=== PATIENT | male | born 1975 | race Caucasian/White ===

== ENCOUNTER → 2017-05-04 | Outpatient (CLI) | payer MEDICAID | LOC: M LAB 12:32 | DX: F31.4 Bipolar disorder, current episode depressed, severe, without psychotic features (principal) | CPT/HCPCS: 80178 ==

== ENCOUNTER → 2017-05-12 | Outpatient (CLI) | payer MEDICAID ==
[2017-05-12 10:34] LABS: BASO % 0.4 % (0.0-1.0); EOS # 0.2 10^3/uL (0.0-0.50); EOS % 2.9 % (0.0-3.0); HEMATOCRIT 40.5 % (42.0-52.0); HEMOGLOBIN 14.3 g/dl (14.0-18.0); IMMATURE GRANULOCYTE % 0.4 % (0-3.0); LYMPH # 1.4 10^3/uL (1.5-4.5); LYMPH % 20.6 % (24.0-44.0); MEAN CORPUSCULAR HEMOGLOBIN 33.3 pg (27.0-33.0); MEAN CORPUSCULAR HGB CONC 35.3 g/dl (32.0-36.5); MEAN CORPUSCULAR VOLUME 94.4 fl (80.0-96.0); MONO # 0.8 10^3/uL (0.0-0.8); MONO % 11.9 % (0.0-5.0); NEUTROPHILS # 4.3 10^3/uL (1.8-7.7); NEUTROPHILS % 63.8 % (36.0-66.0); PLATELET COUNT, AUTOMATED 284 10^3/uL (150-450); RED BLOOD COUNT 4.29 10^6/uL (4.30-6.10); RED CELL DISTRIBUTION WIDTH 12.5 % (11.5-14.5); WHITE BLOOD COUNT 6.8 10^3/uL (4.0-10.0)
[2017-05-12 10:37] LABS: APPEARANCE, URINE CLEAR (CLEAR); BACTERIA, URINE AUTO NEGATIVE (NEGATIVE); BILIRUBIN, URINE AUTO NEGATIVE (NEGATIVE); BLOOD, URINE BLOOD NEGATIVE (NEGATIVE); COLOR, URINE YELLOW (YELLOW); GLUCOSE, URINE (UA) AUTO NEGATIVE (NEGATIVE); KETONE, URINE AUTO NEGATIVE (NEGATIVE); LEUKOCYTE ESTERASE, URINE AUTO NEGATIVE (NEGATIVE); MUCUS, URINE SMALL (NEGATIVE); NITRITE, URINE AUTO NEGATIVE (NEGATIVE); PROTEIN, URINE AUTO NEGATIVE (NEGATIVE); RBC, URINE AUTO 1 /HPF (0-3); SPECIFIC GRAVITY URINE AUTO 1.014 (1.002-1.035); SQUAMOUS EPITHELIAL CELL UR AU 0 /HPF (0-6); UROBILINOGEN, URINE AUTO 0.2 mg/dL (0.0-2.0); WBC, URINE AUTO 1 /HPF (0-3)
[2017-05-12 10:58] LABS: ALBUMIN/GLOBULIN RATIO 1.33 (1.00-1.93); ALKALINE PHOSPHATASE 62 U/L (45-117); ALT/SGPT 38 U/L (12-78); ANION GAP 7 MEQ/L (8-16); AST/SGOT 28 U/L (7-37); BILIRUBIN,TOTAL 0.8 MG/DL (0.2-1.0); BLOOD UREA NITROGEN 15 MG/DL (7-18); CALCIUM LEVEL 9.2 MG/DL (8.5-10.1); CARBON DIOXIDE LEVEL 29 MEQ/L (21-32); CHLORIDE LEVEL 105 MEQ/L (98-107); GLOMERULAR FILTRATION RATE > 60.0 (>60); GLUCOSE, FASTING 78 MG/DL (70-100); POTASSIUM SERUM 4.5 MEQ/L (3.5-5.1); SODIUM LEVEL 141 MEQ/L (136-145)
[2017-05-13 08:08] LABS: HEPATITIS A IgG TOTAL Positive (Negative)
[2017-05-13 11:27] LABS: HEPATITIS B SURFACE ANTIGEN NEGATIVE (NEGATIVE)
[2017-05-13 11:31] LABS: HEPATITIS B SURFACE ANTIBODY NEGATIVE (POSITIVE)
== END ==
LOC: M LAB 09:50
DX: F14.90 Cocaine use, unspecified, uncomplicated (principal); F10.21 Alcohol dependence, in remission; F31.9 Bipolar disorder, unspecified; F43.10 Post-traumatic stress disorder, unspecified
CPT/HCPCS: 80053

== ENCOUNTER → 2017-05-25 | Outpatient (CLI) | payer OTHER, MEDICAID ==
[2017-05-25 14:27] LABS: ALBUMIN 4.1 GM/DL (3.2-5.2); ALBUMIN/GLOBULIN RATIO 1.37 (1.00-1.93); ALKALINE PHOSPHATASE 58 U/L (45-117); ALT/SGPT 30 U/L (12-78); AST/SGOT 16 U/L (7-37); BILIRUBIN,DIRECT 0.2 MG/DL (0.0-0.2); TOTAL PROTEIN 7.1 GM/DL (6.4-8.2)
== END ==
LOC: M LAB 12:35
DX: F11.20 Opioid dependence, uncomplicated (principal)
CPT/HCPCS: 80076

== ENCOUNTER → 2017-09-05 | Outpatient (CLI) | payer OTHER ==
[2017-09-05 12:51] LABS: ALBUMIN/GLOBULIN RATIO 1.38 (1.00-1.93); ALKALINE PHOSPHATASE 64 U/L (45-117); ALT/SGPT 22 U/L (12-78); AST/SGOT 15 U/L (7-37); BILIRUBIN,DIRECT 0.2 MG/DL (0.0-0.2); BILIRUBIN,TOTAL 1.2 MG/DL (0.2-1.0); TOTAL PROTEIN 6.9 GM/DL (6.4-8.2)
[2017-09-05 12:52] LABS: LITHIUM LEVEL 0.41 MEQ/L (0.60-1.20)
== END ==
LOC: M LAB 10:38
DX: Z51.81 Encounter for therapeutic drug level monitoring (principal); Z79.899 Other long term (current) drug therapy
CPT/HCPCS: 80178

== ENCOUNTER → 2017-09-28 | Outpatient (CLI) | payer OTHER ==
[2017-09-28 10:09] LABS: LITHIUM LEVEL 0.46 MEQ/L (0.60-1.20)
== END ==
LOC: M LAB 09:02
DX: F31.4 Bipolar disorder, current episode depressed, severe, without psychotic features (principal)
CPT/HCPCS: 80178

== ENCOUNTER → 2017-10-10 | Outpatient (CLI) | payer OTHER ==
[2017-10-10 09:37] LABS: HEMATOCRIT 39.8 % (42.0-52.0); HEMOGLOBIN 13.9 g/dl (13.5-17.5); MEAN CORPUSCULAR HEMOGLOBIN 32.7 pg (27.0-33.0); MEAN CORPUSCULAR HGB CONC 34.9 g/dl (32.0-36.5); MEAN CORPUSCULAR VOLUME 93.6 fl (80.0-96.0); PLATELET COUNT, AUTOMATED 264 10^3/uL (150-450); RED BLOOD COUNT 4.25 10^6/uL (4.30-6.10); RED CELL DISTRIBUTION WIDTH 12.7 % (11.5-14.5); WHITE BLOOD COUNT 5.7 10^3/uL (4.0-10.0)
[2017-10-10 10:37] LABS: ALBUMIN 3.6 GM/DL (3.2-5.2); ALBUMIN/GLOBULIN RATIO 1.29 (1.00-1.93); ALKALINE PHOSPHATASE 72 U/L (45-117); ALT/SGPT 23 U/L (12-78); ANION GAP 5 MEQ/L (8-16); AST/SGOT 15 U/L (7-37); BILIRUBIN,TOTAL 0.5 MG/DL (0.2-1.0); BLOOD UREA NITROGEN 18 MG/DL (7-18); CALCIUM LEVEL 8.6 MG/DL (8.5-10.1); CARBON DIOXIDE LEVEL 29 MEQ/L (21-32); CHLORIDE LEVEL 109 MEQ/L (98-107); CREATININE FOR GFR 0.97 MG/DL (0.70-1.30); FREE THYROXINE INDEX 2.9 % (1.4-3.8); GLOMERULAR FILTRATION RATE > 60.0 (>60); GLUCOSE, FASTING 83 MG/DL (70-100); SODIUM LEVEL 143 MEQ/L (136-145); T UPTAKE 35 % (33-40); THYROXINE (T4) 8.3 UG/DL (4.5-12.0); TOTAL PROTEIN 6.4 GM/DL (6.4-8.2)
== END ==
LOC: M LAB 09:17
DX: F31.4 Bipolar disorder, current episode depressed, severe, without psychotic features (principal)
CPT/HCPCS: 84443

== ENCOUNTER 2018-01-28 21:27 | Emergency (ER) | payer OTHER ==
[2018-01-28] MEDS: DOXYCYCLINE HYCLATE 100 MG TAB PO (22:45)
== END 2018-01-28 23:09 | disposition home or self-care (01) ==
LOC: M ED 21:27
DX: L02.415 Cutaneous abscess of right lower limb (principal); F31.9 Bipolar disorder, unspecified; F19.11 Other psychoactive substance abuse, in remission; Z79.899 Other long term (current) drug therapy
CPT/HCPCS: 99283

== ENCOUNTER 2018-06-26 10:16 | Emergency (ER) | payer OTHER ==
[~2018-06-26] VITALS: Ht 162.6 cm; Wt 71.3 kg
[~2018-06-26 10:16] MED LIST: DOXY100C37 PO; FOLI800C PO; IBUP80TA PO; LITH300T2 PO; MULTCAP PO; PRAZ1CAP PO
[2018-06-26 10:17] VITALS: BP 133/58
[2018-06-26] MEDS ORDERED: VIVI380I (10:25)
[2018-06-26] MEDS ORDERED: NAPR500T6 PO (11:03)
== END 2018-06-26 11:13 | disposition home or self-care (01) ==
LOC: M ED 10:16
DX: M77.01 Medial epicondylitis, right elbow (principal); Z90.49 Acquired absence of other specified parts of digestive tract; Z79.891 Long term (current) use of opiate analgesic

== ENCOUNTER → 2018-06-30 | Outpatient (REF) | payer OTHER ==
[~2018-06-30] MED LIST changes: +NAPR500T6 PO; +VIVI380I
== END ==
LOC: M SFHCPLAZ 08:47
PROVIDERS: ATTEND Family Medicine
DX: G56.01 Carpal tunnel syndrome, right upper limb (principal)

== ENCOUNTER → 2018-08-07 | Outpatient (REF) | payer OTHER ==
[2018-08-07 16:28] LABS: BLOOD UREA NITROGEN 16 MG/DL (7-18); CALCIUM LEVEL 8.5 MG/DL (8.5-10.1); CARBON DIOXIDE LEVEL 28 MEQ/L (21-32); CHLORIDE LEVEL 106 MEQ/L (98-107); CREATININE FOR GFR 0.91 MG/DL (0.70-1.30); GLOMERULAR FILTRATION RATE > 60.0 (>60); GLUCOSE, FASTING 88 MG/DL (70-100); POTASSIUM SERUM 4.3 MEQ/L (3.5-5.1); SODIUM LEVEL 140 MEQ/L (136-145)
== END ==
LOC: M SFHCPLAZ 14:08
PROVIDERS: ATTEND Family Medicine
DX: G56.01 Carpal tunnel syndrome, right upper limb (principal)

== ENCOUNTER 2018-08-18 10:37 | Outpatient (RCR) | payer OTHER | END 2018-08-27 | LOC: M OT 10:37 | PROVIDERS: ATTEND Student in an Organized Health Care Education/Training Program | DX: G56.01 Carpal tunnel syndrome, right upper limb (principal) ==

== ENCOUNTER → 2018-09-27 | Outpatient (RCR) | payer OTHER | LOC: M OT 08-28 10:02 | PROVIDERS: ATTEND Student in an Organized Health Care Education/Training Program | DX: Z51.89 Encounter for other specified aftercare (principal); G56.01 Carpal tunnel syndrome, right upper limb ==

== ENCOUNTER → 2018-09-27 | Outpatient (REF) | payer OTHER ==
[2018-09-27 19:52] LABS: BASO % 0.4 % (0.0-1.0); EOS # 0.1 10^3/uL (0.0-0.50); EOS % 2.3 % (0.0-3.0); HEMATOCRIT 41.7 % (42.0-52.0); HEMOGLOBIN 14.7 g/dl (13.5-17.5); LYMPH # 1.7 10^3/uL (1.5-4.5); LYMPH % 29.9 % (24.0-44.0); MEAN CORPUSCULAR HEMOGLOBIN 32.7 pg (27.0-33.0); MEAN CORPUSCULAR HGB CONC 35.3 g/dl (32.0-36.5); MEAN CORPUSCULAR VOLUME 92.9 fl (80.0-96.0); MONO # 0.8 10^3/uL (0.0-0.8); MONO % 14.5 % (0.0-5.0); NEUTROPHILS # 2.9 10^3/uL (1.8-7.7); NEUTROPHILS % 52.5 % (36.0-66.0); PLATELET COUNT, AUTOMATED 292 10^3/uL (150-450); RED BLOOD COUNT 4.49 10^6/uL (4.30-6.10); WHITE BLOOD COUNT 5.6 10^3/uL (4.0-10.0)
[2018-09-27 20:01] LABS: ALBUMIN 4.1 GM/DL (3.2-5.2); ALT/SGPT 37 U/L (12-78); BILIRUBIN,TOTAL 0.9 MG/DL (0.2-1.0); BLOOD UREA NITROGEN 16 MG/DL (7-18); CALCIUM LEVEL 9.2 MG/DL (8.5-10.1); CARBON DIOXIDE LEVEL 25 MEQ/L (21-32); CHLORIDE LEVEL 108 MEQ/L (98-107); CHOLESTEROL LEVEL 155 MG/DL (<200); CHOLESTEROL RISK RATIO 3.229 (<5); CREATININE FOR GFR 0.98 MG/DL (0.70-1.30); FREE T4 1.18 NG/DL (0.76-1.46); GLOMERULAR FILTRATION RATE > 60.0 (>60); GLUCOSE, FASTING 82 MG/DL (70-100); HDL CHOLESTEROL 48 MG/DL (>40); LDL CHOLESTEROL 85 MG/DL (<100); NON-HDL-C 107 MG/DL; SODIUM LEVEL 142 MEQ/L (136-145); THYROID STIMULATING HORMONE 0.965 uIU/ML (0.358-3.740); TOTAL PROTEIN 7.2 GM/DL (6.4-8.2); TRIGLYCERIDES LEVEL 111 MG/DL (<150)
[2018-09-27 20:20] LABS: HEMOGLOBIN A1c 5.4 %
== END ==
LOC: M LAB REF 19:18
PROVIDERS: ATTEND Nurse Practitioner Family
DX: Z13.9 Encounter for screening, unspecified (principal)

== ENCOUNTER 2018-10-11 08:15 | Outpatient (RCR) | payer OTHER | END 2018-10-28 | LOC: M OT 08:15 | PROVIDERS: ATTEND Student in an Organized Health Care Education/Training Program | DX: G56.01 Carpal tunnel syndrome, right upper limb (principal) ==

== ENCOUNTER 2018-12-15 09:07 | Emergency (ER) | payer OTHER ==
[~2018-12-15] VITALS: Ht 165.1 cm; Wt 70.6 kg
[2018-12-15 09:08] VITALS: BP 139/73
[2018-12-15] MEDS ORDERED: VITA100T59 PO (09:25)
[2018-12-15] MEDS ORDERED: AMOX500C PO (09:47)
== END 2018-12-15 09:57 | disposition home or self-care (01) ==
LOC: M ED 09:07
DX: J06.9 Acute upper respiratory infection, unspecified (principal); Z79.899 Other long term (current) drug therapy

== ENCOUNTER → 2019-06-20 | Outpatient (CLI) | payer SELFPAY ==
[~2019-06-20] MED LIST changes: +AMOX500C PO; +VITA100T59 PO
--- NOTE | 2019-06-20 17:21 | REP ---
REASON: Pain after trauma. FINDINGS: No acute fracture or destructive osseous lesion. Electronically Signed by Jay Webber DO 06/21/2019 10:49 A
== END ==
LOC: M RAD 15:53
PROVIDERS: ATTEND Physician Assistant Medical
DX: S69.91XA Unspecified injury of right wrist, hand and finger(s), initial encounter (principal); X58.XXXA Exposure to other specified factors, initial encounter; Y92.9 Unspecified place or not applicable

== ENCOUNTER 2019-08-14 15:19 | Emergency (ER) | payer SELFPAY ==
[~2019-08-14] VITALS: Ht 165.1 cm; Wt 69.8 kg
[2019-08-14 15:19] VITALS: BP 139/77
[2019-08-14] MEDS ORDERED: AUGMENTIN 875 MG TAB PO ONE (15:45)
[2019-08-14] MEDS ORDERED: BOOSTRIX/ADACEL VACCINE (DIPHTH/PERTUSS/ACELL/TETANUS) 0.5ML SYR IM ONE (15:45)
[2019-08-14] MEDS ORDERED: AUGM875T28 PO (16:07)
== END 2019-08-14 16:16 | disposition home or self-care (01) ==
LOC: M ED 15:19
DX: S51.851A Open bite of right forearm, initial encounter (principal); W54.0XXA Bitten by dog, initial encounter; Y92.9 Unspecified place or not applicable; Y93.K1 Activity, walking an animal; Y99.9 Unspecified external cause status; F17.220 Nicotine dependence, chewing tobacco, uncomplicated

== ENCOUNTER 2019-10-08 01:15 | Emergency (ER) | payer MEDICAID, SELFPAY ==
[~2019-10-08 01:15] MED LIST changes: +AUGM875T28 PO
== END 2019-10-09 02:30 | disposition home or self-care (01) ==
LOC: M ED 01:15
DX: K40.90 Unilateral inguinal hernia, without obstruction or gangrene, not specified as recurrent (principal)

== ENCOUNTER 2019-10-20 18:05 | Emergency (ER) | payer MEDICAID, SELFPAY ==
[~2019-10-20] VITALS: Ht 165.1 cm; Wt 70.9 kg
[2019-10-20 19:01] LABS: BASO # 0.1 10^3/uL (0.0-0.2); BASO % 0.8 % (0.0-1.0); EOS # 0.3 10^3/uL (0.0-0.5); EOS % 4.2 % (0.0-3.0); HEMATOCRIT 38.9 % (42.0-52.0); HEMOGLOBIN 14.1 g/dl (13.5-17.5); LYMPH # 1.9 10^3/uL (1.5-5.0); LYMPH % 31.8 % (24.0-44.0); MEAN CORPUSCULAR HGB CONC 36.2 g/dl (32.0-36.5); MEAN CORPUSCULAR VOLUME 91.1 fl (80.0-96.0); MONO # 0.7 10^3/uL (0.0-0.8); MONO % 12.5 % (0.0-5.0); NEUTROPHILS % 50.5 % (36.0-66.0); PLATELET COUNT, AUTOMATED 295 10^3/uL (150-450); RED BLOOD COUNT 4.27 10^6/uL (4.30-6.10); WHITE BLOOD COUNT 5.9 10^3/uL (4.0-10.0)
[2019-10-20 19:33] LABS: BLOOD UREA NITROGEN 18 MG/DL (7-18); CARBON DIOXIDE LEVEL 26 MEQ/L (21-32); CHLORIDE LEVEL 108 MEQ/L (98-107); CREATININE FOR GFR 1.16 MG/DL (0.70-1.30); GLOMERULAR FILTRATION RATE > 60.0 (>60); GLUCOSE, FASTING 129 MG/DL (70-100); POTASSIUM SERUM 4.2 MEQ/L (3.5-5.1); SODIUM LEVEL 140 MEQ/L (136-145)
[2019-10-20] MEDS ORDERED: NAPR-837 PO (20:46)
[2019-10-20 20:49] VITALS: BP 136/78
--- NOTE | 2019-11-23 10:20 | REP ---
BILATERAL INGUINAL SONOGRAPHY HISTORY: Left groin pain. History of hernia. Preliminary report is provided by [facility]. FINDINGS: Scanning of the inguinal canal regions bilaterally is performed. No hernia is seen or elicited with Valsalva. The patient is status post right-sided hernia repair. No evidence of inguinal hernia noted on the left. IMPRESSION: Negative bilateral inguinal sonography. No evidence of hernia or abnormal fluid collection. MTDD
== END 2019-10-20 20:49 | disposition home or self-care (01) ==
LOC: M ED 18:05
DX: K40.90 Unilateral inguinal hernia, without obstruction or gangrene, not specified as recurrent (principal); F19.11 Other psychoactive substance abuse, in remission

== ENCOUNTER 2019-11-16 18:37 | Emergency (ER) | payer MEDICAID ==
[~2019-11-16] VITALS: Ht 165.1 cm; Wt 70.9 kg
[~2019-11-16 18:37] MED LIST changes: +NAPR-837 PO
[2019-11-16] MEDS ORDERED: IBUP-1114 PO (18:50)
[2019-11-16] MEDS ORDERED: NORCO, ANEXSIA 5/325MG TABLET (HYDROcodone/ACETAMINOPHEN) PO ONE (20:45)
[2019-11-16] MEDS ORDERED: NORC1TAB7 PO (22:03)
[2019-11-16 22:16] VITALS: BP 132/74
--- NOTE | 2019-11-30 09:56 | REP ---
LEFT INGUINAL ULTRASOUND HISTORY: Hernia. TECHNIQUE: Real-time sonographic evaluation of the left inguinal region performed at rest and with Valsalva maneuver. FINDINGS: There is a small left inguinal hernia containing fat. No bowel is seen within the hernia. The size of the hernia defect is 7-mm at rest and 9-mm with Valsalva maneuver. It does not appear to be reducible. IMPRESSION: Small left inguinal hernia containing fat. Preliminary report provided by [facility] at the time of the exam. MTDD
== END 2019-11-16 22:17 | disposition home or self-care (01) ==
LOC: M ED 18:37
DX: K40.90 Unilateral inguinal hernia, without obstruction or gangrene, not specified as recurrent (principal); F17.200 Nicotine dependence, unspecified, uncomplicated; Z79.891 Long term (current) use of opiate analgesic; Z79.899 Other long term (current) drug therapy

== ENCOUNTER 2019-11-20 19:23 | Inpatient (IN) | payer MEDICAID ==
[~2019-11-20] VITALS: Ht 162.6 cm; Wt 69.7 kg
[~2019-11-20 19:23] MED LIST changes: +IBUP-1114 PO; +NORC1TAB7 PO
[2019-11-20] MEDS ORDERED: LORazepam 2 MG TAB PO PRN (20:00)
[2019-11-20 20:41] LABS: HEMATOCRIT 43.5 % (42.0-52.0); HEMOGLOBIN 15.2 g/dl (13.5-17.5); MEAN CORPUSCULAR HEMOGLOBIN 32.3 pg (27.0-33.0); MEAN CORPUSCULAR HGB CONC 34.9 g/dl (32.0-36.5); MEAN CORPUSCULAR VOLUME 92.6 fl (80.0-96.0); PLATELET COUNT, AUTOMATED 313 10^3/uL (150-450)
[2019-11-20] MEDS: MULTIVITAMINS/MINERALS THERAP 1 TAB PO SCH (21:02)
[2019-11-20] MEDS: FOLIC ACID 1 MG TAB PO SCH (21:02)
[2019-11-20] MEDS: THIAMINE 100 MG TAB PO SCH (21:02)
[2019-11-20 21:14] LABS: BLOOD UREA NITROGEN 18 MG/DL (7-18); CALCIUM LEVEL 8.9 MG/DL (8.5-10.1); CARBON DIOXIDE LEVEL 24 MEQ/L (21-32); CHLORIDE LEVEL 110 MEQ/L (98-107); CREATININE FOR GFR 1.06 MG/DL (0.70-1.30); GLOMERULAR FILTRATION RATE > 60.0 (>60); GLUCOSE, FASTING 90 MG/DL (70-100); POTASSIUM SERUM 4.1 MEQ/L (3.5-5.1); SODIUM LEVEL 141 MEQ/L (136-145)
[2019-11-20 21:15] LABS: ACETAMINOPHEN LEVEL < 2.0 UG/ML (10.0-30.0); ALT/SGPT 63 U/L (12-78); BILIRUBIN,DIRECT 0.1 MG/DL (0.0-0.2); BILIRUBIN,TOTAL 0.4 MG/DL (0.2-1.0); ETHYL ALCOHOL (ETHANOL) 0.152 % (0.000-0.010); SALICYLATE LEVEL < 1.7 MG/DL (5.0-30.0); THYROID STIMULATING HORMONE 0.671 uIU/ML (0.358-3.740); TOTAL PROTEIN 7.3 GM/DL (6.4-8.2)
[2019-11-20 21:21] LABS: AMPHETAMINES LEVEL URINE NEGATIVE (NEGATIVE); BARBITURATES URINE NEGATIVE (NEGATIVE); BENZODIAZEPINES URINE NEGATIVE (NEGATIVE); CANNABINOIDS URINE NEGATIVE (NEGATIVE); COCAINE METABOLITE URINE NEGATIVE (NEGATIVE); METHADONE URINE NEGATIVE (NEGATIVE); OPIATES URINE POSITIVE (NEGATIVE); PHENCYCLIDINE URINE NEGATIVE (NEGATIVE)
[2019-11-20] MEDS ORDERED: NORC1TAB7 PO (21:41)
[2019-11-20] MEDS ORDERED: IBUP-1764 PO (21:41)
[2019-11-20] MEDS ORDERED: VITMTA PO (21:41)
[2019-11-20] MEDS ORDERED: NORCO, ANEXSIA 5/325MG TABLET (HYDROcodone/ACETAMINOPHEN) PO ONE (21:45)
[2019-11-21] MEDS: LORazepam 2 MG TAB PO STA ×2 (01:36→02:07)
[2019-11-21] MEDS ORDERED: IBUPROFEN 400 MG TAB PO ONE (06:45)
[2019-11-21] MEDS: THIAMINE 100 MG TAB PO SCH ×2 (08:57→22:46)
[2019-11-21] MEDS: MULTIVITAMINS/MINERALS THERAP 1 TAB PO SCH (08:57)
[2019-11-21] MEDS: FOLIC ACID 1 MG TAB PO SCH (08:57)
[2019-11-21] MEDS ORDERED: NORCO, ANEXSIA 5/325MG TABLET (HYDROcodone/ACETAMINOPHEN) PO ONE (17:30)
[2019-11-22] MEDS: MULTIVITAMINS/MINERALS THERAP 1 TAB PO SCH (09:24)
[2019-11-22] MEDS: THIAMINE 100 MG TAB PO SCH ×2 (09:24→21:46)
[2019-11-22] MEDS: FOLIC ACID 1 MG TAB PO SCH (09:24)
[2019-11-22] MEDS ORDERED: NORCO, ANEXSIA 5/325MG TABLET (HYDROcodone/ACETAMINOPHEN) PO ONE (09:45)
[2019-11-22] MEDS ORDERED: LORazepam 2 MG TAB PO PRN (20:00)
[2019-11-22] MEDS ORDERED: OLANZapine ORAL DISINTEGRATING TAB 5MG PO PRN (20:00)
[2019-11-22] MEDS ORDERED: MOM 30ML SUSPENSION UDC PO PRN (20:00)
[2019-11-22] MEDS ORDERED: MAALOX 30 ML SUSP *UDC PO PRN (20:00)
--- NOTE | 2019-11-22 20:45 | ECGEPIP ---
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
[2019-11-22 20:48] VITALS: BP 135/68
[2019-11-22] MEDS: ACETAMINOPHEN TAB 650MG DOSE (2X325MG) PO PRN (21:47)
[2019-11-22 22:09] VITALS: BP 135/68
[2019-11-22] MEDS: traZODone 50 MG TAB PO PRN (22:53)
[2019-11-22] MEDS ORDERED: NICOTINE 21MG/24HR 1 EA TRANSDERMAL TD ONE (23:00)
[2019-11-23 06:37] VITALS: BP 110/61
[2019-11-23 06:38] VITALS: BP 110/61
[2019-11-23] MEDS: FOLIC ACID 1 MG TAB PO SCH (08:43)
[2019-11-23] MEDS: THIAMINE 100 MG TAB PO SCH (08:43)
[2019-11-23] MEDS: MULTIVITAMINS/MINERALS THERAP 1 TAB PO SCH (08:43)
[2019-11-23] MEDS: SERTRALINE HCL 50 MG TAB PO SCH (08:43)
[2019-11-23] MEDS: NICOTINE 21MG/24HR 1 EA TRANSDERMAL TD SCH (08:44)
[2019-11-23] MEDS ORDERED: INFLUENZA QUADRIVALENT PF VACCINE 0.5ML SYRINGE IM ONE (09:00)
[2019-11-23 09:55] VITALS: BP 110/61
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
[2019-11-23 18:42] VITALS: BP 130/73
[2019-11-23 20:00] VITALS: BP 130/75
[2019-11-23] MEDS: ACETAMINOPHEN TAB 650MG DOSE (2X325MG) PO PRN (22:15)
[2019-11-23] MEDS: traZODone 50 MG TAB PO PRN (23:45)
[2019-11-24 06:36] VITALS: BP 119/70
[2019-11-24] MEDS: FOLIC ACID 1 MG TAB PO SCH (08:05)
[2019-11-24] MEDS: SERTRALINE HCL 50 MG TAB PO SCH (08:05)
[2019-11-24] MEDS: MULTIVITAMINS/MINERALS THERAP 1 TAB PO SCH (08:05)
[2019-11-24] MEDS: ACETAMINOPHEN TAB 650MG DOSE (2X325MG) PO PRN (08:05)
[2019-11-24] MEDS: NICOTINE 21MG/24HR 1 EA TRANSDERMAL TD SCH (08:05)
[2019-11-24 09:43] VITALS: BP 119/70
--- NOTE | 2019-11-24 11:33 | HPEPDOC ---
General Date of Admission Nov 22, 2019 at 19:47 Date of Service: Nov 23, 2019 Chief Complaint The patient is a 44-year-old male admitted with a reason for visit of Unspecified Depressive Do. Source: Patient History of Present Illness 44 year old male who relapsed after being sober for 3 years presented for depression with reported suicidal thoughts. He was feeling lonely he had no one to talk with and he started drinking. He was admitted to [facility] for unspecified depression. Today he complains of left inguinal hernia which is painful about 6/10 more when he coughs and it pops out. The pain goes down to his inner thighs and up to the left upper quadrant. The pain is dull aching or pulling/ dragging kind. He is scheduled or a surgery in November for this, His speech is very rapid and tangential. Home Medications Scheduled Multivitamins (Thera M Plus Tablet) 1 Each Tablet, 1 TAB PO DAILY, (Reported) Scheduled PRN Hydrocodone/Acetaminophen ([place] 5-325 Tablet) 1 Each Tablet, 1 TAB PO Q6HP PRN for MODERATE/SEVERE PAIN (PS 5-10) Trazodone HCl (Trazodone HCl) 50 Mg Tablet, 50 MG PO QHSP PRN for INSOMNIA Miscellaneous Medications Ibuprofen (Ibuprofen) 400 Mg Tablet, 400 MG PO, (Reported) Allergies Coded Allergies: No Known Allergies (Unverified , 11/20/19) Past Medical History Medical History Left inguinal hernia Chronic back pain, carpal tunnel syndrome s/p surgery. right inguinal hernia repair in the past. Surgical History APPENDECTOMY in 2009 HERNIA REPAIR RIGHT SIDE 2012 RIGHT CARPAL TUNNEL RELEASE 12/27/18 Family History estranged from family from the age of 18 years so does not know any family history. Social History * Smoker: current smoker A-FIB/CHADSVASC A-FIB History Current/History of A-Fib/PAF?: No Review of Systems Constitutional: Denies: Chills, Fever, Night Sweats Eyes: Denies: Pain, Vision change ENT: Denies: Head Aches, Ear Pain, Dysphagia Skin: Denies: Rash, Lesions, Breakdown Pulmonary: Denies: Dyspnea, Cough Cardiovascular: Denies: Chest Pain, Palpitations, Orthopnea, Paroxysmal Noc. Dyspnea, Lt Headedness Gastrointestinal: Denies: Nausea, Vomiting, Abdominal Pain, Diarrhea Genitourinary: Denies: Dysuria, Frequency, Incontinence, Retention Hematologic: Denies: Bruising, Bleeding Excessively Musculoskeletal: Reports: Back Pain, Shoulder Pain, Arm Pain Physical Examination General Exam: Positive: Alert, Cooperative, No Acute Distress Eye Exam: Positive: PERRLA, Conjunctiva & lids normal, EOMI; Negative: Sclera icteric ENT Exam: Positive: Atraumatic, Mucous membr. moist/pink, Pharynx Normal Chest Exam: Positive: Clear to auscultation, Normal air movement Heart Exam: Positive: Rate Normal, Regular Rhythm, Normal S1, Normal S2; Negative: Murmurs, Rubs Abdomen Exam: Positive: Normal bowel sounds, Soft, Tenderness (left inguinal region), Hernia; Negative: Hepatospenomegaly Extremity Exam: Positive: Normal pulses; Negative: Clubbing, Cyanosis, Edema Skin Exam: Positive: Nl turgor and temperature; Negative: Breakdown, Lesion Neuro Exam: Positive: Normal Gait, Strength at 5/5 X4 ext, Normal Tone Vital Signs Vital Signs Date Time Temp Pulse Resp B/P (MAP) Pulse Ox O2 Delivery O2 Flow Rate FiO2 11/23/19 06:38 70 110/61 11/23/19 06:37 97.6 12 Room Air 11/22/19 20:48 98 Assessment/Plan 44 year old male admittd for unspecified depression Left inguinal hernia planned for surgery next month tylenol prn for pain Depression as per Psychiatry. Plan / VTE VTE Prophylaxis Ordered?: No ÁNGEL CHAN MD Nov 23, 2019 12:48
[2019-11-24 18:00] VITALS: BP 118/58
[2019-11-24] MEDS: traZODone 50 MG TAB PO PRN (20:32)
[2019-11-25 06:49] VITALS: BP 105/57
[2019-11-25] MEDS: NICOTINE 21MG/24HR 1 EA TRANSDERMAL TD SCH (08:25)
[2019-11-25] MEDS: SERTRALINE HCL 50 MG TAB PO SCH (08:26)
[2019-11-25] MEDS: ACETAMINOPHEN TAB 650MG DOSE (2X325MG) PO PRN (08:26)
[2019-11-25 17:49] VITALS: BP 134/78
[2019-11-25] MEDS: traZODone 50 MG TAB PO PRN (20:15)
[2019-11-25] MEDS: IBUPROFEN 600MG TAB PO PRN (20:16)
[2019-11-26 06:40] VITALS: BP 120/69
[2019-11-26] MEDS: NICOTINE 21MG/24HR 1 EA TRANSDERMAL TD SCH (08:29)
[2019-11-26] MEDS: IBUPROFEN 600MG TAB PO PRN (08:29)
[2019-11-26] MEDS: SERTRALINE HCL 50 MG TAB PO SCH (08:29)
[2019-11-26] MEDS ORDERED: TRAZ-252 PO (09:28)
--- NOTE | 2019-11-26 12:30 | MHDSPDOC ---
[facility] Discharge Summary Discharge Summary DATE OF ADMISSION: Nov 22, 2019 at 19:47 DATE OF DISCHARGE: November 26, 2019 at 1200 DISCHARGE DIAGNOSES: 1. Major Depressive Disorder, Single Episode, Mild REASON FOR ADMISSION: Patient is a 44 year old Single, Employed, Male who self-presented CONSULTANTS INVOLVED: Please see Medical Consult by Medical MD TREATMENT AND PROGRESS ON THE UNIT : Patient was admitted to [facility] and afforded the following treatment modalities: 1) Individual Therapy, 2) Group Therapy, 3) Medication Management, 4) Milieu Therapy and 5) Safe Environment HOSPITAL COURSE: Patient was calm and cooperative on the unit. He was social with peers and staff and attended groups. Patient reports that his depression started when he started to withdraw from friends by isolating. He also stated, "When I start doing the things that the doctor told me not to do, that is when it started going against me. I started walking and made the Hernia worse, I had lack of sleep because of the pain, and this increased depression and anxiety." Patient states that he had improved sleep and that the inability to walk the distances that he was walking, alleviated the hernia pain. He is requesting discharge today, reporting mild depression and mild anxiety. He reports no suicidal/homicidal ideation, planning or intent. He denies and is not observed with paranoia, radha, delusional or bizarre thinking, auditory or visual hallucinations, denies racing thoughts or dichotomous/somatic preoccupations. His insight and judgement is good. DISCHARGE ASSESSMENT: Patient is stable discharge. 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 He is short statured, with larger build. He is dressed appropriately in hospital scrubs and t-shirt. He makes good eye contact, with no psychomotor agitation or retardation. He is calm and cooperative in the interview Speech is fluid, spontaneous, moderately rapid Language skills are good Thought processes including: reality-based, linear and goal oriented Thought content: mild depression, no reports of delusional thinking, a/v/t hallucinations, ideas of reference or racing thoughts Abstract reasoning, and computation: goood Description of associations: Not observed and patient denies Description of abnormal or psychotic thoughts: Not observed and patient denies Judgment: good Insight: good Orientation to alert and oriented x 3 Recent and remote memory: Intact Attention span and concentration: Good Language: expansive Fund of knowledge: Good Mood: Brighter mood, "I am feeling a lot better" minimally depressed Affect: congruent with stated mood MEDICATIONS ON DISCHARGE: Patient refused Zoloft but was agreeable to Trazodone 50 mg at bedtime PLAN/FOLLOWUP ARRANGEMENTS: Patient is following up with The amount of time spent in the coordination of care for this patient was approximately 30 minutes. Vital Signs/I&Os Vital Signs Date Time Temp Pulse Resp B/P (MAP) Pulse Ox O2 Delivery O2 Flow Rate FiO2 11/26/19 06:40 97.6 81 16 120/69 (86) 97 Room Air Medications Scheduled Multivitamins (Thera M Plus Tablet) 1 Each Tablet, 1 TAB PO DAILY, (Reported) Scheduled PRN Trazodone HCl (Trazodone HCl) 50 Mg Tablet, 50 MG PO QHSP PRN for INSOMNIA, #7 Allergies Coded Allergies: No Known Allergies (Unverified , 11/20/19) CAROL DANIELS NP Nov 26, 2019 12:30
--- NOTE | 2019-11-29 10:32 | MHIPN ---
DATE: 11/24/2019 The patient today tells me that he is feeling "tired." He took trazodone last night, and it really did not help him sleep as well, and so he had to take Zyprexa and he says he then sleep well but is feeling tired today. He admits he still feels depressed and he is having a lot of guilt over the fact that he has relapsed after 3 years of sobriety. He does say that he is not suicidal. MENTAL STATUS EXAMINATION: He is alert and oriented times three. He is pleasant and cooperative, verbally spontaneous. Eye contact is fair. Psychomotor activity is normal. There is no formal thought disorder noted. Mood is depressed. Affect full range and appropriate. He is not psychotic. Denies suicidal or homicidal ideation. Concentration is fair. Memory intact. Insight and judgment fair. DIAGNOSIS: Major depressive disorder. TREATMENT PLAN: At this point, we will continue to monitor the patient for continued elevation and stabilization of his mood and resolution of suicidal ideation. He is tolerating his Zoloft well at this point. CHRISTIAN
== END 2019-11-26 14:00 | disposition home or self-care (01) | DRG 751 ==
LOC: M ED 19:23 → M ED INP 11-22 19:47 → M PSY 11-22 20:55
PROVIDERS: ADMIT Psychiatry & Neurology Psychiatry; ATTEND Psychiatry & Neurology Psychiatry
DX: F32.0 Major depressive disorder, single episode, mild (principal); K40.90 Unilateral inguinal hernia, without obstruction or gangrene, not specified as recurrent

== ENCOUNTER → 2019-11-29 | Outpatient (CLI) | payer MEDICAID ==
[~2019-11-29] MED LIST changes: +HYDR-3713 PO; +IBUP-1764 PO; +TRAZ-252 PO; +VITMTA PO
== END ==
LOC: M LABSMTC 09:46
PROVIDERS: ATTEND Anesthesiology
DX: Z11.59 Encounter for screening for other viral diseases (principal)
CPT/HCPCS: C9803; U0003

== ENCOUNTER 2019-12-04 05:59 | Day surgery (SDC) | payer MEDICAID, OTHER ==
[~2019-12-04] VITALS: Ht 165.1 cm; Wt 70.3 kg
[~2019-12-04 05:59] MED LIST changes: -HYDR-3713 PO
[2019-12-04] MEDS ORDERED: HYDR-3713 PO (06:35)
[2019-12-04] MEDS ORDERED: IBUP-1114 PO (06:35)
[2019-12-04] MEDS ORDERED: LR 1,000 ML IV ONE (07:00)
[2019-12-04] MEDS ORDERED: MIDAZOLAM INJ 2MG/2ML VIAL (J2250 PER 1MG) As Ordered ONE (07:04)
[2019-12-04] MEDS ORDERED: fentaNYL 100 MCG/2 ML INJECTION (J3010) As Ordered ONE (07:08)
[2019-12-04] MEDS ORDERED: ROCURONIUM BROMIDE 50 MG/5 ML VIAL As Ordered ONE ×2 (07:09→08:01)
[2019-12-04] MEDS ORDERED: LIDOCAINE 2% 100MG/5ML SDV (FOR ANES.) As Ordered ONE (07:09)
[2019-12-04] MEDS ORDERED: BUPIVACAINE HCL 0.25% 30ML VIAL As Ordered ONE (07:15)
[2019-12-04] MEDS ORDERED: dexameTHASONE 4 MG/ML 1ML VIAL (J1100 PER 1MG) As Ordered ONE (07:16)
[2019-12-04] MEDS ORDERED: SUGAMMADEX SODIUM 500 MG/5 ML VIAL (BRIDION) As Ordered ONE (07:17)
[2019-12-04] MEDS ORDERED: propofoL 200 MG/20 ML VIAL As Ordered ONE (07:17)
[2019-12-04] MEDS ORDERED: KETOROLAC 60MG 2ML VIAL As Ordered ONE (07:18)
[2019-12-04] MEDS ORDERED: ONDANSETRON 4MG/2ML VIAL As Ordered ONE (07:18)
[2019-12-04] MEDS ORDERED: METOCLOPRAMIDE INJ 10MG/2ML VIAL (J2765 PER 1) As Ordered ONE (07:18)
[2019-12-04] MEDS ORDERED: ACETAMINOPHEN 1000MG 100ML IV BTL (OFIRMEV) (J0131 PER 10MG) As Ordered ONE (07:55)
[2019-12-04] MEDS ORDERED: HYDROmorphone HCL 2 MG/ML 1ML VIAL (J1170) As Ordered ONE (07:56)
[2019-12-04] MEDS ORDERED: PHENYLephrine HCL 500 MCG/5 ML (100MCG/ML) SYRINGE (J2370) As Ordered ONE (08:43)
[2019-12-04] MEDS ORDERED: ePHEDrine SULFATE 25 MG/5 ML(5MG/ML) SYRINGE As Ordered ONE (08:43)
[2019-12-04] MEDS ORDERED: MEPERIDINE INJ 25 MG/ML VIAL (J2175) IV PRN (09:45)
[2019-12-04] MEDS ORDERED: LR 1,000 ML IV SCH (09:45)
[2019-12-04] MEDS ORDERED: IBUPROFEN 600MG TAB PO PRN (09:45)
[2019-12-04] MEDS ORDERED: NORCO, ANEXSIA 5/325MG TABLET (HYDROcodone/ACETAMINOPHEN) PO PRN (09:45)
[2019-12-04] MEDS ORDERED: METOCLOPRAMIDE INJ 10MG/2ML VIAL (J2765 PER 1) IV PRN (09:45)
[2019-12-04] MEDS ORDERED: ACETAMINOPHEN TAB 650MG DOSE (2X325MG) PO PRN (09:45)
[2019-12-04] MEDS ORDERED: fentaNYL 100 MCG/2 ML INJECTION (J3010) IV PRN (09:45)
[2019-12-04] MEDS ORDERED: oxyCODONE 5MG TAB PO PRN (09:45)
[2019-12-04] MEDS ORDERED: ONDANSETRON 4MG/2ML VIAL IV PRN (09:45)
[2019-12-04] MEDS ORDERED: NORC1TAB7 PO (09:51)
[2019-12-04 11:26] VITALS: BP 150/86
--- NOTE | 2019-12-11 09:47 | RO ---
DATE OF OPERATION: 12/04/2019 PREOPERATIVE DIAGNOSIS: Left inguinal hernia. POSTOPERATIVE DIAGNOSIS: Direct left inguinal hernia. PROCEDURE: Left inguinal herniorrhaphy robotically assisted with Covidien ProGrip mesh. SURGEON: Ronen Bowers MD [employer]: RICARDO Montgomery who was essential for management of the robot with placement of trocars and change of instruments, passage of materials and closure of the incisions. ANESTHESIA: General. INDICATIONS FOR PROCEDURE: The patient is a 44-year-old man who was seen in the office for a left inguinal hernia. He is now for a robotic-assisted laparoscopic left inguinal herniorrhaphy. OPERATIVE PROCEDURE: The patient was brought to the operating room and placed on the table in a supine position. He was placed under general endotracheal anesthesia. The patients abdomen was prepped and draped in a sterile fashion. A 0.25% Marcaine was infiltrated at each of the trocar sites as needed. A short transverse incision was made about 3-4 cm above the umbilicus. A Veress needle was inserted and after a positive hanging drop test, an 8 mm robotic trocar was placed over a 5-mm scope and advanced through the abdominal wall without difficulty. Initially examination showed no evidence of trocar injury. The liver appeared normal. Visualized portions of the small and large bowel appeared normal. A second 8 mm trocar was then placed in the right upper quadrant and a third in the left upper quadrant. The patient was then tilted to a 15-degree Trendelenburg position. The [employer] Trevin Xi patient cart was brought into position and the endoscope port was docked. Targeting took place in the left side of the pelvis. The remaining ports were then docked to the appropriate arm. A fenestrated bipolar and a cauterizing scissor were then inserted. I then moved to the control console to proceed with the surgery. The exam showed no definite indirect inguinal hernia sac. A peritoneal flap was then developed beginning at the medial umbilical ligament and extending left and then inferiorly toward the anterosuperior iliac spine. The peritoneum was peeled away using a combination of sharp, blunt and cautery dissection. As the space was developed, it became clear that the patient had a medial direct hernia. There was no evidence of an indirect hernia. The peritoneum was carefully peeled away from the cord structures to create an adequate space for a prosthetic patch. Medially, the fascial tissue on each side of the hernia defect was identified. The bladder was noted to be somewhat prominent and part of the dissection was actually anterior to the left anterior side of the bladder. I elected to close the hernia defect. This was accomplished beginning medially and extending laterally using a 2.0 V-Loc suture. This was closed without difficulty. A Covidien ProGrip mesh patch was then selected. This was reference code [id number] and lot #[id number]. This was trimmed slightly at the corners by Divya Kemp and then inserted into the abdomen. This was inserted into the preperitoneal space that had been prepared. The mesh was unfolded and positioned so that it covered the inguinal floor. This was shifted a little more to the medial aspect than usual to cover the direct hernia medially. This was actually tucked down anterior to the bladder at its most medial extent. The peritoneal flap was then closed with a running suture of 2-0 V-Loc. This was begun laterally and as the closure proceeded medially, the intraabdominal pressure was diminished and the patient was then tilted back to only a 5 degree head-down position. The final needle was removed. Inspection showed no evidence of any bleeding with an excellent coverage of the mesh. The remaining instruments were removed and the abdomen deflated. Divya Kemp then proceeded to remove the trocars and the trocar sites were closed with buried 4-0 Vicryl sutures and Steri-Strips. The patient tolerated the procedure well without apparent complication. He was awakened in the operating room, extubated and moved to the recovery room in stable condition. CHRISTIAN
== END 2019-12-04 11:26 | disposition home or self-care (01) ==
LOC: M SDC 05:59
PROVIDERS: ATTEND Surgery
DX: K40.90 Unilateral inguinal hernia, without obstruction or gangrene, not specified as recurrent (principal); Z79.899 Other long term (current) drug therapy; F17.220 Nicotine dependence, chewing tobacco, uncomplicated
CPT/HCPCS: 49650; C1781; J0131; J1100; J1170; J1885; J2250; J2370; J2405; J2765; J3010; S2900

== ENCOUNTER 2020-07-22 21:37 | Emergency (ER) | payer OTHER ==
[~2020-07-22] VITALS: Ht 162.6 cm; Wt 65.7 kg
[~2020-07-22 21:37] MED LIST changes: +HYDR-3713 PO
[2020-07-23 00:54] LABS: BASO # 0.1 10^3/uL (0.0-0.2); BASO % 0.8 % (0.0-1.0); EOS # 0.5 10^3/uL (0.0-0.5); EOS % 6.9 % (0.0-3.0); HEMATOCRIT 37.1 % (42.0-52.0); LYMPH % 26.6 % (24.0-44.0); MEAN CORPUSCULAR HEMOGLOBIN 32.6 pg (27.0-33.0); MONO % 12.7 % (2.0-8.0); NEUTROPHILS % 52.7 % (36.0-66.0); PLATELET COUNT, AUTOMATED 287 10^3/uL (150-450); RED BLOOD COUNT 3.99 10^6/uL (4.30-6.10); WHITE BLOOD COUNT 7.6 10^3/uL (4.0-10.0)
--- NOTE | 2020-07-23 01:41 | REPVR ---
PROCEDURE INFORMATION: Exam: XR Chest Exam date and time: 07/23/2020 12:34 AM Age: 45 years old Clinical indication: Cough and dyspnea; Additional info: Dyspnea/cough TECHNIQUE: Imaging protocol: XR of the chest. Views: 2 views. COMPARISON: No relevant prior studies available. FINDINGS: Lungs: Unremarkable. No consolidation. Pleural spaces: Unremarkable. No pleural effusion. No pneumothorax. Heart/Mediastinum: Unremarkable. No cardiomegaly. Bones/joints: Slight anterior wedge configuration of several lower thoracic segments which appear to be chronic. IMPRESSION: Negative chest. Electronically signed by: Christian Browning On 07/23/2020 01:40:47 AM
[2020-07-23 01:43] LABS: ALBUMIN 3.5 GM/DL (3.2-5.2); ALT/SGPT 22 U/L (12-78); BILIRUBIN,DIRECT 0.2 MG/DL (0.0-0.2); BILIRUBIN,TOTAL 0.5 MG/DL (0.2-1.0); BLOOD UREA NITROGEN 10 MG/DL (7-18); CALCIUM LEVEL 8.4 MG/DL (8.5-10.1); CARBON DIOXIDE LEVEL 27 MEQ/L (21-32); CHLORIDE LEVEL 105 MEQ/L (98-107); CK-MB VALUE MASS 2.1 NG/ML (<3.6); CPK CREATINE PHOSPHOKINASE 340 U/L (39-308); CREATININE FOR GFR 1.03 MG/DL (0.70-1.30); FREE T4 1.11 NG/DL (0.76-1.46); GLOMERULAR FILTRATION RATE > 60.0 (>60); GLUCOSE, FASTING 101 MG/DL (70-100); MB/CK RELATIVE INDEX 0.62 (< OR =4); NT-PRO BNP 24 PG/ML (<125); POTASSIUM SERUM 4.2 MEQ/L (3.5-5.1); SODIUM LEVEL 139 MEQ/L (136-145); THYROID STIMULATING HORMONE 0.449 uIU/ML (0.358-3.740); TOTAL PROTEIN 6.5 GM/DL (6.4-8.2); TROPONIN I < 0.02 NG/ML (< 0.10)
[2020-07-23 03:17] VITALS: O2SAT 96
[2020-07-23 05:00] VITALS: BP 128/80
--- NOTE | 2020-07-23 05:42 | ECGEPIP ---
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
== END 2020-07-23 05:38 | disposition home or self-care (01) ==
LOC: M ED 21:37
DX: R06.02 Shortness of breath (principal); R94.31 Abnormal electrocardiogram [ECG] [EKG]; F17.200 Nicotine dependence, unspecified, uncomplicated; Z87.19 Personal history of other diseases of the digestive system